=== PATIENT | male | born 1995 | race African-American/Black ===

== ENCOUNTER 2021-08-10 16:30 | Emergency (ER) | payer OTHER, SELFPAY ==
[2021-08-10] MEDS ORDERED: Sodium Chloride 0.9% 1,000 ML ONE (17:10)
[2021-08-10] MEDS ORDERED: Ziprasidone 20 MG VIAL ONE (17:10)
[2021-08-10] MEDS ORDERED: Sterile Water 10 ML ONE (17:11)
[2021-08-10] MEDS ORDERED: Lorazepam 2 MG/ML VIAL ONE (17:36)
[2021-08-10 18:13] LABS: Bilirubin Small (Negative); Blood, Urine Trace (Negative); Glucose, Urine (Dipstick) Negative (Negative); Ketone, Urine 15 mg/dL (Negative); Leukocyte Negative (Negative); Nitrite Negative (Negative); Protein, Urine (Dipstick) 30 mg/dL (Neg-Trace); Urobilinogen 0.2 mg/dL (Less than 2)
[2021-08-10 18:20] LABS: Clarity Hazy (Clear); Specific Gravity, Urine 1.035 (1.002-1.036); Squamous Epithelial 0-3 HPF (0-3); WBC/HPF 0-3 HPF (0-3)
[2021-08-10 18:21] LABS: Bacteria/HPF Rare-Few HPF (None Seen); RBC/HPF 0-3 HPF (0-3)
[2021-08-10 18:24] LABS: #Basophils 0.2 thou/uL (0.0-0.2); #Lymphocytes 1.8 thou/uL (1.20-3.40); #Monocytes 0.5 thou/uL (0.11-0.59); #Neutrophils 3.9 thou/uL (1.40-6.50); %Basophils 2.5 % (0.0-1.0); %Eosinophils 0.2 % (0.0-10.0); %Lymphocytes 28.1 % (21.0-51.0); %Monocytes 7.5 % (0.0-10.0); %Neutrophils 61.8 % (42.0-75.0); Anisocytosis SLIGHT = 6-15 cells (100X) (0-5/hpf); Hypochromia SLIGHT = 6-15 cells (100X) (0-5/hpf); MDiff Complete? YES; Mean Corpuscular HGB CONC 29.4 g/dL (32.0-36.0); Mean Corpuscular Hemoglobin 21.1 pg (27.0-31.0); Mean Corpuscular Volume 71.7 fL (78.0-98.0); Mean Platelet Volume 11.6 fL (7.4-10.4); Platelet Count 250 thou/uL (130-400); Platelet Morphology Comment Appears Adequate; Red Blood Cell (RBC) Count 6.14 mill/uL (4.70-6.10); White Blood Cell (WBC) Count 6.3 thou/uL (4.8-10.8)
[2021-08-10 18:25] LABS: Cocaine Metabolite Screen Detected (NotDetected); Phencyclidine (PCP) Not Detected (NotDetected); THC/Cannabinoid Screen Not Detected (NotDetected)
[2021-08-10 18:26] LABS: Amphetamine Detected (NotDetected); Barbiturates Screen Not Detected (NotDetected); Benzodiazepine Screen Not Detected (NotDetected); Medtox Control Line Valid? VALID (VALID); Methadone Not Detected (NotDetected); Methamphetamine Detected (NotDetected); Opiate Screen Not Detected (NotDetected); Oxycodone Screen Not Detected (NotDetected); Tricyclic Screen Not Detected (NotDetected)
[2021-08-10 18:31] LABS: ALT (SGPT) 11 U/L (8-55); AST (SGOT) 18 U/L (5-34); Acetaminophen Less than 10.0 mcg/mL (10.0-30.0); Albumin 4.3 g/dL (3.5-5.0); Alcohol Less than 10 mg/dL (Less than 10); Alkaline Phosphatase 82 U/L (40-110); Anion Gap 16 mmol/L (10-20); BUN (Urea Nitrogen) 12 mg/dL (8.9-20.6); CK (CPK) 398 U/L (30-200); Calc. Creatinine Clearance 0 mL/min (70-130); Calcium 9.1 mg/dL (7.8-10.44); Carbon Dioxide 23 mmol/L (22-29); Chloride 107 mmol/L (98-107); Globulin 3.2 g/dL (2.4-3.5); Glucose 102 mg/dL (70-105); Protein, Total 7.5 g/dL (6.0-8.3); Salicylate Less than 8.0 mg/dL (15.0-30.0); Sodium 143 mmol/L (136-145)
[2021-08-10 18:32] LABS: Potassium 2.9 mmol/L (3.5-5.1)
[2021-08-10] MEDS ORDERED: NS 0.9% w/ 40 MEQ KCL 1,000 ML IV ONE (18:38)
== END 2021-08-11 09:13 | disposition home or self-care (01) ==
LOC: MADERS 16:30
DX: F15.10 Other stimulant abuse, uncomplicated (principal); F14.10 Cocaine abuse, uncomplicated; F23 Brief psychotic disorder
CPT/HCPCS: 36415; 51701; 70450; 71045; 80053; 80306; 80307; 81003; 81015; 82550; 84484; 85025; 93005; 94760; 96365; 96366; 96372; 96375; J2060; J3480; J3486; J7050